=== PATIENT | male | born 1970 | race Caucasian/White ===

== ENCOUNTER 2017-09-19 23:56 | Inpatient (IN) | payer OTHER ==
[2017-09-19 23:57] VITALS: BMI 22.9
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
[2017-09-20] MEDS ORDERED: Sodium Chloride 0.9% 1,000 ML IV ONE (02:39)
[2017-09-20 02:57] LABS: VENOUS BLOOD GAS BASE EXCESS -0.3 mmol/L (0.0-2.0); VENOUS BLOOD GAS PCO2 55 mmHg (40-60); VENOUS BLOOD GAS PO2 31 mm/Hg (30-55)
[2017-09-20 03:07] LABS: BASO % 0.2 % (0.0-2.0); EOS # 0.2 K/uL (0.0-0.7); EOS % 1.6 % (0.0-4.0); HEMOGLOBIN 14.7 g/dL (12.0-18.0); LYMPH # 2.5 K/uL (1.0-4.3); LYMPH % 18.1 % (20.0-40.0); MEAN CELL VOLUME 87.4 fL (80.0-94.0); MEAN CORPUSCULAR HEMOGLOBIN 29.3 pg (27.0-31.0); MEAN CORPUSCULAR HGB CONC 33.5 g/dL (33.0-37.0); MEAN PLATELET VOLUME 8.3 fL (7.2-11.7); MONO # 0.9 K/uL (0.0-0.8); MONO % 6.6 % (0.0-10.0); NEUT # 9.9 K/uL (1.8-7.0); NEUT % 73.5 % (50.0-75.0); RBC 5.01 Mil/uL (4.40-5.90); RED CELL DISTRIBUTION WIDTH 13.1 % (11.5-14.5); WHITE BLOOD COUNT 13.5 K/uL (4.8-10.8)
[2017-09-20 03:10] LABS: URINE BILIRUBIN NEGATIVE (NEGATIVE); URINE CLARITY Clear (Clear); URINE COLOR Yellow (YELLOW); URINE GLUCOSE (UA) NORMAL (Normal); URINE LEUKOCYTE ESTERASE NEG Leu/uL (Negative); URINE NITRATE NEGATIVE (NEGATIVE); URINE PROTEIN NEGATIVE (NEGATIVE); URINE UROBILINOGEN NORMAL mg/dL (0.2-1.0)
[2017-09-20 03:13] LABS: URINE BLOOD NEGATIVE (NEGATIVE)
[2017-09-20 03:20] LABS: ALB/GLOB RATIO 1.1 (1.0-2.1); ALBUMIN 4.2 g/dL (3.5-5.0); ALT/SGPT 32 U/L (21-72); AST/SGOT 21 U/L (17-59); BLOOD UREA NITROGEN 15 mg/dL (9-20); CALCIUM 9.5 mg/dl (8.6-10.4); GFR AFRICAN-AMERICAN > 60; GFR NON-AFRICAN AMERICAN > 60
[2017-09-20] MEDS ORDERED: Morphine 4 MG/ML VIAL ONE (05:20)
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
[2017-09-20 08:06] LABS: BASO % 0.2 % (0.0-2.0); EOS # 0.2 K/uL (0.0-0.7); EOS % 1.9 % (0.0-4.0); HEMOGLOBIN 13.4 g/dL (12.0-18.0); LYMPH % 24.4 % (20.0-40.0); MEAN CORPUSCULAR HEMOGLOBIN 29.6 pg (27.0-31.0); MEAN CORPUSCULAR HGB CONC 33.6 g/dL (33.0-37.0); MEAN PLATELET VOLUME 7.9 fL (7.2-11.7); MONO % 8.3 % (0.0-10.0); NEUT % 65.2 % (50.0-75.0); NRBC % 0.1 % (0.0-2.0); RBC 4.53 Mil/uL (4.40-5.90); RED CELL DISTRIBUTION WIDTH 12.9 % (11.5-14.5); WHITE BLOOD COUNT 12.2 K/uL (4.8-10.8)
[2017-09-20 08:16] LABS: ALB/GLOB RATIO 1.1 (1.0-2.1); ALBUMIN 3.5 g/dL (3.5-5.0); ALT/SGPT 28 U/L (21-72); AST/SGOT 22 U/L (17-59); BLOOD UREA NITROGEN 13 mg/dL (9-20); CALCIUM 8.6 mg/dl (8.6-10.4); GFR AFRICAN-AMERICAN > 60; GFR NON-AFRICAN AMERICAN > 60
--- NOTE | 2017-09-20 08:59 | RAD ---
HISTORY: fever COMPARISON: None available. TECHNIQUE: Chest, one view. FINDINGS: LUNGS: No focal consolidation. Please note that chest x-ray has limited sensitivity for the detection of pulmonary masses. PLEURA: No significant pleural effusion identified. No definite pneumothorax . CARDIOVASCULAR: Heart size appears within normal limits. OSSEOUS STRUCTURES: No acute osseous abnormality identified. VISUALIZED UPPER ABDOMEN: Unremarkable. OTHER FINDINGS: None. IMPRESSION: No focal consolidation, significant pleural effusion, or definite pneumothorax identified.
--- NOTE | 2017-09-21 10:33 | VASCLAB ---
PROCEDURE: Lower Extremity Venous Duplex Exam. HISTORY: r/o DVT B/L LE pain, Fever unknown origin PRIORS: None. TECHNIQUE: Bilateral common femoral, femoral, popliteal and posterior tibial, peroneal and great saphenous veins were evaluated. Flow was assessed with color Doppler, compressibility, assessment of phasic flow and augmentation response. Report prepared by Dean Velez, T FINDINGS: RIGHT: 1. Common Femoral Vein: 1.1. Compressibility - Fully compressible: Thrombus - None : Flow - Phasic: Augmentation -Normal. 2. Femoral Vein: 2.1. Compressibility - Fully compressible: Thrombus - None : Flow - Phasic: Augmentation -Normal. 3. Popliteal Vein: 3.1. Compressibility - Fully compressible: Thrombus - None : Flow - Phasic: Augmentation -Normal. 4. Posterior Tibial Vein: 4.1. Compressibility - Fully compressible: Thrombus - None. 5. Peroneal Vein: 5.1. Compressibility - Fully compressible: Thrombus - None. 6. Great Saphenous Vein: 6.1. Compressibility - Fully compressible: Thrombus - None: Flow - Phasic. LEFT: 1. Common Femoral Vein: 1.1. Compressibility - Fully compressible: Thrombus - None: Flow - Phasic: Augmentation -Normal. 2. Femoral Vein: 2.1. Compressibility - Fully compressible: Thrombus - None: Flow - Phasic: Augmentation -Normal. 3. Popliteal Vein: 3.1. Compressibility - Fully compressible: Thrombus - None : Flow - Phasic: Augmentation -Normal. 4. Posterior Tibial Vein: 4.1. Compressibility - Fully compressible: Thrombus - None. 5. Peroneal Vein: 5.1. Compressibility - Fully compressible: Thrombus - None. 6. Great Saphenous Vein: 6.1. Compressibility - Fully compressible: Thrombus - None: Flow - Phasic. OTHER FINDINGS: Right: None significant. Left: None significant. IMPRESSION: Right: No evidence of deep or superficial vein thrombosis of the right lower extremity. Left: No evidence of deep or superficial vein thrombosis of the left lower extremity.
[2017-09-21 11:58] LABS: BASO % 0.1 % (0.0-2.0); EOS # 0.2 K/uL (0.0-0.7); HEMOGLOBIN 14.2 g/dL (12.0-18.0); LYMPH # 1.8 K/uL (1.0-4.3); LYMPH % 19.4 % (20.0-40.0); MEAN CELL VOLUME 88.1 fL (80.0-94.0); MEAN CORPUSCULAR HEMOGLOBIN 29.7 pg (27.0-31.0); MEAN CORPUSCULAR HGB CONC 33.8 g/dL (33.0-37.0); MEAN PLATELET VOLUME 7.7 fL (7.2-11.7); MONO # 0.8 K/uL (0.0-0.8); NEUT # 6.5 K/uL (1.8-7.0); NEUT % 69.5 % (50.0-75.0); RBC 4.76 Mil/uL (4.40-5.90); RED CELL DISTRIBUTION WIDTH 12.8 % (11.5-14.5); WHITE BLOOD COUNT 9.4 K/uL (4.8-10.8)
--- NOTE | 2017-09-21 12:00 | MRI ---
MRI left knee History: Left knee pain. Comparison: None available. Technique: Multi-echo multiplanar sequences were performed through the left knee without the use of intravenous contrast. Findings: Thinning and attenuation with increased signal seen within the visualized anterior cruciate ligament suggestive for a moderate grade sprain with some partial interstitial tearing/interstitial delamination. Clinical correlation. Posterior cruciate ligament is preserved. Curvilinear increased signal seen within the posterior horn of the medial meniscus suggestive for grade 1 intrasubstance degeneration and or intrasubstance partial tearing. Adjacent moderate grade strain at the posterior meniscocapsular junction of the posterior horn of the medial meniscus. Curvilinear fluid intensity signal seen at the anterior root of the anterior horn of the lateral meniscus extending to the articular surface suggestive for a possible small tear. Mild thickening with increased signal seen within the distal attachment of the medial collateral ligament suggestive for a low-grade sprain. Lateral collateral ligament complex structures appear preserved. Mild distal quadriceps tendinopathy. Patellar tendon is preserved. Patellar cartilage is preserved. Femorotibial articular cartilage is preserved. No significant suprapatellar joint effusion. Increased signal seen at the level of the pes anserinus bursa adjacent to the medial proximal tibia which may represent some insertional tendinopathy. Clinical correlation to site of pain. Adjacent reticulation and edema seen within the anteromedial subcutaneous soft tissues of the proximal tibia. Clinical correlation. Impression: 1. Thinning and attenuation with increased signal seen within the visualized anterior cruciate ligament suggestive for a moderate grade sprain with some partial interstitial tearing/interstitial delamination. Clinical correlation. 2. Curvilinear increased signal seen within the posterior horn of the medial meniscus suggestive for grade 1 intrasubstance degeneration and or intrasubstance partial tearing. Adjacent moderate grade strain at the posterior meniscocapsular junction of the posterior horn of the medial meniscus. 3. Curvilinear fluid intensity signal seen at the anterior root of the anterior horn of the lateral meniscus extending to the articular surface suggestive for a possible small tear. 4. Mild thickening with increased signal seen within the distal attachment of the medial collateral ligament suggestive for a low-grade sprain. 5. Mild distal quadriceps tendinopathy. 6. Increased signal seen at the level of the pes anserinus bursa adjacent to the medial proximal tibia which may represent some insertional tendinopathy. Clinical correlation to site of pain. Adjacent reticulation and edema seen within the anteromedial subcutaneous soft tissues of the proximal tibia. Clinical correlation.
[2017-09-21 12:28] LABS: ALBUMIN 3.9 g/dL (3.5-5.0); ALT/SGPT 25 U/L (21-72); AST/SGOT 44 U/L (17-59); BLOOD UREA NITROGEN 11 mg/dL (9-20); CALCIUM 9.3 mg/dl (8.6-10.4); GFR AFRICAN-AMERICAN > 60; GFR NON-AFRICAN AMERICAN > 60; MAGNESIUM 2.2 mg/dL (1.6-2.3)
[2017-09-21] MEDS ORDERED: Sodium Chloride 0.9% 1,000 ML IV SCH (13:45)
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
[2017-09-21] MEDS ORDERED: Sodium Chloride 0.9% 1,000 ML ONE (14:52)
--- NOTE | 2017-09-21 14:56 | CT ---
PROCEDURE: CT HEAD WITHOUT CONTRAST. HISTORY: headaches COMPARISON: None available. TECHNIQUE: Axial computed tomography images were obtained through the head/brain without intravenous contrast. Radiation dose: Total exam DLP = 877.17 mGy-cm. This CT exam was performed using one or more of the following dose reduction techniques: Automated exposure control, adjustment of the mA and/or kV according to patient size, and/or use of iterative reconstruction technique. FINDINGS: HEMORRHAGE: No intracranial hemorrhage. BRAIN: No mass effect or edema. The gordon-white matter differentiation appears intact. Please note that MRI with diffusion imaging is more sensitive in the detection of acute ischemic event. VENTRICLES: No hydrocephalus. CALVARIUM: Unremarkable. PARANASAL SINUSES: Unremarkable as visualized. No significant inflammatory changes. MASTOID AIR CELLS: Unremarkable as visualized. No inflammatory changes. OTHER FINDINGS: None. IMPRESSION: No acute intracranial pathology identified.
[2017-09-21 16:51] VITALS: RESP 20
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
[2017-09-21 20:06] LABS: LEGIONELLA AG URINE NEGATIVE (NEGATIVE)
[2017-09-21 21:07] LABS: MYCOPLASMA PNEUMONIAE IGM NEGATIVE (NEGATIVE)
[2017-09-21] MEDS: Naproxen 550 mg Tab PO SCH (22:07)
[2017-09-22] MEDS ORDERED: Apap-Butalbital-Caffeine 325-50-40mg Tab PO PRN (07:23)
[2017-09-22 08:22] LABS: BASO % 0.1 % (0.0-2.0); EOS # 0.1 K/uL (0.0-0.7); EOS % 0.4 % (0.0-4.0); HEMOGLOBIN 13.5 g/dL (12.0-18.0); LYMPH # 2.3 K/uL (1.0-4.3); MEAN CELL VOLUME 87.4 fL (80.0-94.0); MEAN CORPUSCULAR HGB CONC 34.3 g/dL (33.0-37.0); MEAN PLATELET VOLUME 7.8 fL (7.2-11.7); MONO # 1.2 K/uL (0.0-0.8); MONO % 5.7 % (0.0-10.0); NEUT # 17.2 K/uL (1.8-7.0); NEUT % 82.8 % (50.0-75.0); RBC 4.5 Mil/uL (4.40-5.90); RED CELL DISTRIBUTION WIDTH 12.5 % (11.5-14.5)
[2017-09-22 08:30] LABS: WHITE BLOOD COUNT 20.8 K/uL (4.8-10.8)
[2017-09-22 08:46] LABS: ALBUMIN 3.7 g/dL (3.5-5.0); ALT/SGPT 30 U/L (21-72); AST/SGOT 27 U/L (17-59); BLOOD UREA NITROGEN 13 mg/dL (9-20); CALCIUM 8.9 mg/dl (8.6-10.4); GFR AFRICAN-AMERICAN > 60; GFR NON-AFRICAN AMERICAN > 60
[2017-09-22] MEDS: Naproxen 550 mg Tab PO SCH ×2 (11:00→18:03)
--- NOTE | 2017-09-22 13:41 | CP.PCM.DIS ---
<SouravHolly desai - Last Filed: 09/22/17 14:23> Provider - Provider Date of Admission: 09/20/17 05:10 Attending physician: Annemarie Woodard DO Time Spent in preparation of Discharge (in minutes): 55 Hospital Course - Lab Results Lab Results: Micro Results 09/20/17 02:00 Blood Blood Culture - Preliminary NO GROWTH AFTER 48 HOURS 09/20/17 02:30 Blood Blood Culture - Preliminary NO GROWTH AFTER 48 HOURS Most Recent Lab Values WBC 20.8 K/uL (4.8-10.8) H D 09/22/17 07:55 RBC 4.50 Mil/uL (4.40-5.90) 09/22/17 07:55 Hgb 13.5 g/dL (12.0-18.0) 09/22/17 07:55 Hct 39.4 % (35.0-51.0) 09/22/17 07:55 MCV 87.4 fL (80.0-94.0) 09/22/17 07:55 MCH 30.0 pg (27.0-31.0) 09/22/17 07:55 MCHC 34.3 g/dL (33.0-37.0) 09/22/17 07:55 RDW 12.5 % (11.5-14.5) 09/22/17 07:55 Plt Count 387 K/uL (130-400) 09/22/17 07:55 MPV 7.8 fL (7.2-11.7) 09/22/17 07:55 Neut % (Auto) 82.8 % (50.0-75.0) H 09/22/17 07:55 Lymph % (Auto) 11.0 % (20.0-40.0) L 09/22/17 07:55 Cole % (Auto) 5.7 % (0.0-10.0) 09/22/17 07:55 Eos % (Auto) 0.4 % (0.0-4.0) 09/22/17 07:55 Baso % (Auto) 0.1 % (0.0-2.0) 09/22/17 07:55 Neut # (Auto) 17.2 K/uL (1.8-7.0) H 09/22/17 07:55 Lymph # (Auto) 2.3 K/uL (1.0-4.3) 09/22/17 07:55 Cole # (Auto) 1.2 K/uL (0.0-0.8) H 09/22/17 07:55 Eos # (Auto) 0.1 K/uL (0.0-0.7) 09/22/17 07:55 Baso # (Auto) 0.0 K/uL (0.0-0.2) 09/22/17 07:55 ESR 32 mm/hr (0-15) H 09/21/17 11:47 PT 11.0 SECONDS (9.7-12.2) 09/20/17 03:04 INR 1.0 09/20/17 03:04 APTT 39 SECONDS (21-34) H 09/20/17 03:04 pO2 31 mm/Hg (30-55) 09/20/17 02:50 VBG pH 7.30 (7.32-7.43) L 09/20/17 02:50 VBG pCO2 55 mmHg (40-60) 09/20/17 02:50 VBG HCO3 23.5 mmol/L 09/20/17 02:50 VBG Total CO2 28.8 mmol/L (22-28) H 09/20/17 02:50 VBG Base Excess -0.3 mmol/L (0.0-2.0) L 09/20/17 02:50 VBG Potassium 3.9 mmol/L (3.6-5.2) 09/20/17 02:50 Sodium 142.0 mmol/l (132-148) 09/20/17 02:50 Chloride 98.0 mmol/L (98-107) 09/20/17 02:50 Glucose 98 mg/dl (75-110) 09/20/17 02:50 Lactate 2.1 mmol/L (0.7-2.1) 09/20/17 02:50 Sodium 138 mmol/L (132-148) 09/22/17 07:55 Potassium 4.0 mmol/L (3.6-5.2) 09/22/17 07:55 Chloride 99 mmol/L (98-107) 09/22/17 07:55 Carbon Dioxide 30 mmol/L (22-30) 09/22/17 07:55 Anion Gap 12 (10-20) 09/22/17 07:55 BUN 13 mg/dL (9-20) 09/22/17 07:55 Creatinine 0.7 mg/dL (0.8-1.5) L 09/22/17 07:55 Est GFR ( Amer) > 60 09/22/17 07:55 Est GFR (Non-Af Amer) > 60 09/22/17 07:55 Random Glucose 96 mg/dL (75-110) 09/22/17 07:55 Lactic Acid 0.8 mmol/L (0.7-2.1) 09/21/17 16:40 Calcium 8.9 mg/dl (8.6-10.4) 09/22/17 07:55 Phosphorus 3.6 mg/dL (2.5-4.5) 09/22/17 07:55 Magnesium 2.0 mg/dL (1.6-2.3) 09/22/17 07:55 Total Bilirubin 0.5 mg/dL (0.2-1.3) 09/22/17 07:55 AST 27 U/L (17-59) 09/22/17 07:55 ALT 30 U/L (21-72) 09/22/17 07:55 Alkaline Phosphatase 62 U/L (38-126) 09/22/17 07:55 Lactate Dehydrogenase 325 U/L (313-618) 09/21/17 14:41 C-React Prot High Sens > 15.00 mg/L (1.00-3.00) H 09/20/17 07:57 Total Protein 7.3 g/dL (6.3-8.3) 09/22/17 07:55 Albumin 3.7 g/dL (3.5-5.0) 09/22/17 07:55 Globulin 3.6 gm/dL (2.2-3.9) 09/22/17 07:55 Albumin/Globulin Ratio 1.0 (1.0-2.1) 09/22/17 07:55 Procalcitonin < 0.05 NG/ML (0.19-0.49) L 09/20/17 07:21 Venous Blood Potassium 3.9 mmol/L (3.6-5.2) 09/20/17 02:50 Urine Color Yellow (YELLOW) 09/20/17 03:05 Urine Clarity Clear (Clear) 09/20/17 03:05 Urine pH 5.0 (5.0-8.0) 09/20/17 03:05 Ur Specific Leland 1.016 (1.003-1.030) 09/20/17 03:05 Urine Protein Negative mg/dL (NEGATIVE) 09/20/17 03:05 Urine Glucose (UA) Normal mg/dL (Normal) 09/20/17 03:05 Urine Ketones Negative mg/dL (NEGATIVE) 09/20/17 03:05 Urine Blood Negative (NEGATIVE) 09/20/17 03:05 Urine Nitrate Negative (NEGATIVE) 09/20/17 03:05 Urine Bilirubin Negative (NEGATIVE) 09/20/17 03:05 Urine Urobilinogen Normal mg/dL (0.2-1.0) 09/20/17 03:05 Ur Leukocyte Esterase Neg Luiza/uL (Negative) 09/20/17 03:05 Urine WBC (Auto) 2 /hpf (0-5) 09/20/17 03:05 Urine RBC (Auto) 1 /hpf (0-3) 09/20/17 03:05 DMITRIY 6 Profile Negative (NEGATIVE) 09/20/17 07:21 Influenza Typ A,B (EIA) Negative for flu a/b (NEGATIVE) 09/21/17 15:41 Ur L.pneumophila Ag Negative (NEGATIVE) 09/21/17 19:39 Mycoplasma pneumon IgM Negative (NEGATIVE) 09/21/17 19:39 Anti-Staphylolysin O Negative (NEGATIVE) 09/21/17 14:41 Grp A Beta Strep Ag Negative (NEGATIVE) 09/21/17 15:41 - Hospital Course Hospital Course: Upon Admission: 47 year old male with no past medical history comes in today complaining of a fever for the past two weeks. The patient states that he tried Ibuprofen at home however, it didnt help with his symptoms. He reports the fever spiking around 9/10 p.m. at night. The Tmax at home was 102F. In conjunction with the fever the patient reports his left leg becomes red every time he spikes a fever. He states that when this occurs he has difficulty moving the knee. The patient had a similar episode approximately four years ago. The patient denies any nausea, vomiting, sick contacts, injury to the leg, cough, changes in vision ,syncopal episodes, abdominal pain, or any other complaints. PMD: Dr. Conroy Past medical history: Denies Allergies: Moxifloxacin Surgical history: Knee reconstruction and Right hand surgery Social history: Denies tobacco use. Social drinker. Denies illicit drug use. Lives with and kids Patient is a full code. Throughout Hospital Course: Patient was admitted for hx of fever x 3 weeks and questionable transient synovitis. 1) Fever * Admit Regular floor * Tylenol 650mg PO Q6H PRN Fever * Blood cultures (09/20/17): no growth for 24 hours X2 * UA: negative; pending urine culture * ESR elevated, CRP: elevated * DMITRIY- negative, Rapid strep - negative, LDH- negative * ASO- pending * White count elevated on admission; has normalized * Supportive therapy * Vitamin C 500mg PO daily * Tylenol 650mg PO Q6H PRN Fever * Legionella, Mycoplasma IgM, Rapid Strep- negative * Patient does not qualify as fever of unknown origin; this has not been going on for 3 weeks * Likely viral illness * Start Naproxen 500mg PO BID * Only received one dose of steroids Patient was completely afebrile during the entire admission. 2) Prior History of Influenza * Previously completed Tamiflu as outpatient * negative here 3) Persistent Headache History of Migraine * Pending Head CT result * Patient reports he had CT head and Brain MRI completed 5 years ago; cannot remember name of neurologist 4) Degenerative Joint Disease, Partial Meniscus Tears; Ligament Sprains * Orthopedic consult (Dr. Gauthier) sales operations specialist * Venous Dopplers: negative for DVT * Sprain, Tendinopathy, and partial Tear as per MRI * Left Knee MRI: Thinning and attenuation with increased signal seen within the visualized anterior cruciate ligament suggestive for a moderate grade sprain with some partial interstitial tearing/interstitial delamination. Clinical correlation. 2. Curvilinear increased signal seen within the posterior horn of the medial meniscus suggestive for grade 1 intrasubstance degeneration and or intrasubstance partial tearing. Adjacent moderate grade strain at the posterior meniscocapsular junction of the posterior horn of the medial meniscus. 3. Curvilinear fluid intensity signal seen at the anterior root of the anterior horn of the lateral meniscus extending to the articular surface suggestive for a possible small tear. 4. Mild thickening with increased signal seen within the distal attachment of the medial collateral ligament suggestive for a low-grade sprain. 5. Mild distal quadriceps tendinopathy. 6. Increased signal seen at the level of the pes anserinus bursa adjacent to the medial proximal tibia which may represent some insertional tendinopathy. Clinical correlation to site of pain. Adjacent reticulation and edema seen within the anteromedial subcutaneous soft tissues of the proximal tibia. Clinical correlation. * Received one dose of steroids * Start Naproxen 500mg PO BID * No orthopedic intervention at this time 5) Ambulatory Dysfunction * Physical therapy to eval and treat * Left Knee MRI: Thinning and attenuation with increased signal seen within the visualized anterior cruciate ligament suggestive for a moderate grade sprain with some partial interstitial tearing/interstitial delamination. Clinical correlation. 2. Curvilinear increased signal seen within the posterior horn of the medial meniscus suggestive for grade 1 intrasubstance degeneration and or intrasubstance partial tearing. Adjacent moderate grade strain at the posterior meniscocapsular junction of the posterior horn of the medial meniscus. 3. Curvilinear fluid intensity signal seen at the anterior root of the anterior horn of the lateral meniscus extending to the articular surface suggestive for a possible small tear. 4. Mild thickening with increased signal seen within the distal attachment of the medial collateral ligament suggestive for a low-grade sprain. 5. Mild distal quadriceps tendinopathy. 6. Increased signal seen at the level of the pes anserinus bursa adjacent to the medial proximal tibia which may represent some insertional tendinopathy. Clinical correlation to site of pain. Adjacent reticulation and edema seen within the anteromedial subcutaneous soft tissues of the proximal tibia. Clinical correlation Please review EMR for full record. Discharge Exam - Head Exam Head Exam: ATRAUMATIC - Additional Findings Additional findings: - Constitutional Appears: No Acute Distress - Head Exam Head Exam: NORMAL INSPECTION, NORMOCEPHALIC - Eye Exam Eye Exam: EOMI, Normal appearance, PERRL Pupil Exam: NORMAL ACCOMODATION - ENT Exam ENT Exam: Mucous Membranes Moist, Normal Exam - Respiratory Exam Respiratory Exam: Clear to Ausculation Bilateral, NORMAL BREATHING PATTERN - GI/Abdominal Exam GI & Abdominal Exam: Soft, Normal Bowel Sounds. absent: Distended, Tenderness - Extremities Exam Extremities Exam: Normal Inspection. absent: Pedal Edema, Tenderness - Neurological Exam Neurological Exam: Alert, Awake, Oriented x3 - Psychiatric Exam Psychiatric exam: Normal Affect, Normal Mood - Skin Skin Exam: Dry, Intact, Normal Color, Warm Discharge Plan - Discharge Medications Prescriptions: RX: Naproxen [Anaprox DS] 550 mg PO BID #14 tab - Follow Up Plan Condition: GOOD Disposition: HOME/ ROUTINE Instructions: Naproxen (By mouth), Fever in Adults (GEN), Swollen Knee Joint ( GEN) Additional Instructions: Please take Naproxen 550mg by mouth twice a day for 7 days. Please follow up with Dr. Garcia or an orthopedic of your choice or recommended by your PMD. Please return to the ED if your symptoms worsen or return. Referrals: [facility] [Outside] Jose Gauthier MD [Staff Provider] - <Annemarie Woodard V - Last Filed: 09/23/17 12:02> Provider - Provider Date of Admission: 09/20/17 05:10 Attending physician: Annemarie Woodard DO Diagnosis - Discharge Diagnosis (1) Fever Status: Acute (2) Ambulatory dysfunction Status: Acute (3) Viral illness Status: Acute (4) Prophylactic measure Status: Acute Hospital Course - Lab Results Lab Results: Micro Results 09/20/17 02:00 Blood Blood Culture - Preliminary NO GROWTH AFTER 48 HOURS 09/20/17 02:30 Blood Blood Culture - Preliminary NO GROWTH AFTER 48 HOURS Most Recent Lab Values WBC 19.0 K/uL (4.8-10.8) H 09/22/17 14:50 RBC 4.46 Mil/uL (4.40-5.90) 09/22/17 14:50 Hgb 13.2 g/dL (12.0-18.0) 09/22/17 14:50 Hct 38.8 % (35.0-51.0) 09/22/17 14:50 MCV 87.1 fL (80.0-94.0) 09/22/17 14:50 MCH 29.7 pg (27.0-31.0) 09/22/17 14:50 MCHC 34.1 g/dL (33.0-37.0) 09/22/17 14:50 RDW 12.7 % (11.5-14.5) 09/22/17 14:50 Plt Count 425 K/uL (130-400) H 09/22/17 14:50 MPV 8.2 fL (7.2-11.7) 09/22/17 14:50 Neut % (Auto) 77.5 % (50.0-75.0) H 09/22/17 14:50 Lymph % (Auto) 16.6 % (20.0-40.0) L 09/22/17 14:50 Cole % (Auto) 5.2 % (0.0-10.0) 09/22/17 14:50 Eos % (Auto) 0.6 % (0.0-4.0) 09/22/17 14:50 Baso % (Auto) 0.1 % (0.0-2.0) 09/22/17 14:50 Neut # (Auto) 14.7 K/uL (1.8-7.0) H 09/22/17 14:50 Lymph # (Auto) 3.2 K/uL (1.0-4.3) 09/22/17 14:50 Cole # (Auto) 1.0 K/uL (0.0-0.8) H 09/22/17 14:50 Eos # (Auto) 0.1 K/uL (0.0-0.7) 09/22/17 14:50 Baso # (Auto) 0.0 K/uL (0.0-0.2) 09/22/17 14:50 ESR 41 mm/hr (0-15) H 09/22/17 14:50 PT 11.0 SECONDS (9.7-12.2) 09/20/17 03:04 INR 1.0 09/20/17 03:04 APTT 39 SECONDS (21-34) H 09/20/17 03:04 pO2 31 mm/Hg (30-55) 09/20/17 02:50 VBG pH 7.30 (7.32-7.43) L 09/20/17 02:50 VBG pCO2 55 mmHg (40-60) 09/20/17 02:50 VBG HCO3 23.5 mmol/L 09/20/17 02:50 VBG Total CO2 28.8 mmol/L (22-28) H 09/20/17 02:50 VBG Base Excess -0.3 mmol/L (0.0-2.0) L 09/20/17 02:50 VBG Potassium 3.9 mmol/L (3.6-5.2) 09/20/17 02:50 Sodium 142.0 mmol/l (132-148) 09/20/17 02:50 Chloride 98.0 mmol/L (98-107) 09/20/17 02:50 Glucose 98 mg/dl (75-110) 09/20/17 02:50 Lactate 2.1 mmol/L (0.7-2.1) 09/20/17 02:50 Sodium 138 mmol/L (132-148) 09/22/17 07:55 Potassium 4.0 mmol/L (3.6-5.2) 09/22/17 07:55 Chloride 99 mmol/L (98-107) 09/22/17 07:55 Carbon Dioxide 30 mmol/L (22-30) 09/22/17 07:55 Anion Gap 12 (10-20) 09/22/17 07:55 BUN 13 mg/dL (9-20) 09/22/17 07:55 Creatinine 0.7 mg/dL (0.8-1.5) L 09/22/17 07:55 Est GFR ( Amer) > 60 09/22/17 07:55 Est GFR (Non-Af Amer) > 60 09/22/17 07:55 Random Glucose 96 mg/dL (75-110) 09/22/17 07:55 Lactic Acid 0.8 mmol/L (0.7-2.1) 09/21/17 16:40 Calcium 8.9 mg/dl (8.6-10.4) 09/22/17 07:55 Phosphorus 3.6 mg/dL (2.5-4.5) 09/22/17 07:55 Magnesium 2.0 mg/dL (1.6-2.3) 09/22/17 07:55 Total Bilirubin 0.5 mg/dL (0.2-1.3) 09/22/17 07:55 AST 27 U/L (17-59) 09/22/17 07:55 ALT 30 U/L (21-72) 09/22/17 07:55 Alkaline Phosphatase 62 U/L (38-126) 09/22/17 07:55 Lactate Dehydrogenase 325 U/L (313-618) 09/21/17 14:41 C-React Prot High Sens > 15.00 mg/L (1.00-3.00) H 09/20/17 07:57 Total Protein 7.3 g/dL (6.3-8.3) 09/22/17 07:55 Albumin 3.7 g/dL (3.5-5.0) 09/22/17 07:55 Globulin 3.6 gm/dL (2.2-3.9) 09/22/17 07:55 Albumin/Globulin Ratio 1.0 (1.0-2.1) 09/22/17 07:55 Procalcitonin < 0.05 NG/ML (0.19-0.49) L 09/20/17 07:21 Venous Blood Potassium 3.9 mmol/L (3.6-5.2) 09/20/17 02:50 Urine Color Yellow (YELLOW) 09/20/17 03:05 Urine Clarity Clear (Clear) 09/20/17 03:05 Urine pH 5.0 (5.0-8.0) 09/20/17 03:05 Ur Specific Leland 1.016 (1.003-1.030) 09/20/17 03:05 Urine Protein Negative mg/dL (NEGATIVE) 09/20/17 03:05 Urine Glucose (UA) Normal mg/dL (Normal) 09/20/17 03:05 Urine Ketones Negative mg/dL (NEGATIVE) 09/20/17 03:05 Urine Blood Negative (NEGATIVE) 09/20/17 03:05 Urine Nitrate Negative (NEGATIVE) 09/20/17 03:05 Urine Bilirubin Negative (NEGATIVE) 09/20/17 03:05 Urine Urobilinogen Normal mg/dL (0.2-1.0) 09/20/17 03:05 Ur Leukocyte Esterase Neg Luiza/uL (Negative) 09/20/17 03:05 Urine WBC (Auto) 2 /hpf (0-5) 09/20/17 03:05 Urine RBC (Auto) 1 /hpf (0-3) 09/20/17 03:05 DMITRIY 6 Profile Negative (NEGATIVE) 09/20/17 07:21 Influenza Typ A,B (EIA) Negative for flu a/b (NEGATIVE) 09/21/17 15:41 Ur L.pneumophila Ag Negative (NEGATIVE) 09/21/17 19:39 Mycoplasma pneumon IgM Negative (NEGATIVE) 09/21/17 19:39 Anti-Staphylolysin O Negative (NEGATIVE) 09/21/17 14:41 Grp A Beta Strep Ag Negative (NEGATIVE) 09/21/17 15:41 Attending/Attestation - Attestation I have personally seen and examined this patient.: Yes I have fully participated in the care of the patient.: Yes I have reviewed all pertinent clinical information, including history, physical exam and plan: Yes Notes (Text): Point of clarification: patient reports he has had Fever since Sep 08; however he has not had cyclic fevers for this time. Patient was previously on antibiotic and then had allergic reaction to Avelox as out patient; when off antibiotic as of Sep 14, the fever came back. This is late computer entry for 09/22/17. Patient seen, examined and case discussed with day-time resident. Patient seen in [facility] 3rd floor. Patient reports he reports he is feeling better. Patient was afebrile last night. Blood cultures remain negative. patient has elevated white count but patient received Prednisone prior to order being discontinued. Patient's serologies were negative. Urine culture is negative. Patient recommended to follow-up with outpatient orthopedic in regards to chronic knee changes. Patient provided work excuse noted for the time while in the hospital. Patient is medically stable for discharge. Patient discharge on naproxen 500mg PO BID for two weeks to cover for inflammations associated with chronic knee changes. Patient is ambulatory. This is a summary of patient's hospitalization. Please see EMR for further details. Discharge Diagnoses: 1) Fever (Resolved) * Admit Regular floor * Tylenol 650mg PO Q6H PRN Fever * Blood cultures (09/20/17): no growth for 3 days X2 * UA: negative; urine culture is negative * ESR elevated, CRP: elevated * negative DMITRIY, ASO * Throat culture: jose growth * LDH is normal * White count normalized; but elevation secondary to steroid * Supportive therapy * Vitamin C 500mg PO daily * Tylenol 650mg PO Q6H PRN Fever * negativte Legionella, Mycoplasma IgM, Rapid Strep * Patient does not qualify as fever of unknown origin; this has not been going on for 3 weeks * Likely viral illness * Start Naproxen 500mg PO BID 2) Prior History of Influenza * Previously completed Tamiflu as outpatient. 3) Headache (resolved) History of Migraine * Head CT (09/21/17): no acute intracranial pathology identified * Patient reports he had CT head and Brain MRI completed 5 years ago; cannot remember name of neurologist * Recommended to follow-up outpatient with his neurologist 4) Transient synovitis; Degenerative Joint Disease, Partial Meniscus Tears; Ligament Sprains * Orthopedic consult (Dr. Gauthier) sales operations specialist * Venous Dopplers: negative for DVT * Sprain, Tendinopathy, and partial Tear as per MRI * Left Knee MRI: Thinning and attenuation with increased signal seen within the visualized anterior cruciate ligament suggestive for a moderate grade sprain with some partial interstitial tearing/interstitial delamination. Clinical correlation. 2. Curvilinear increased signal seen within the posterior horn of the medial meniscus suggestive for grade 1 intrasubstance degeneration and or intrasubstance partial tearing. Adjacent moderate grade strain at the posterior meniscocapsular junction of the posterior horn of the medial meniscus. 3. Curvilinear fluid intensity signal seen at the anterior root of the anterior horn of the lateral meniscus extending to the articular surface suggestive for a possible small tear. 4. Mild thickening with increased signal seen within the distal attachment of the medial collateral ligament suggestive for a low-grade sprain. 5. Mild distal quadriceps tendinopathy. 6. Increased signal seen at the level of the pes anserinus bursa adjacent to the medial proximal tibia which may represent some insertional tendinopathy. Clinical correlation to site of pain. Adjacent reticulation and edema seen within the anteromedial subcutaneous soft tissues of the proximal tibia. Clinical correlation. * Start Naproxen 500mg PO BID (2 weeks worth on discharge) and recommended to follow-up outpatient upon discharge 5) Ambulatory Dysfunction (stable) * Physical therapy to eval and treat * Left Knee MRI: Thinning and attenuation with increased signal seen within the visualized anterior cruciate ligament suggestive for a moderate grade sprain with some partial interstitial tearing/interstitial delamination. Clinical correlation. 2. Curvilinear increased signal seen within the posterior horn of the medial meniscus suggestive for grade 1 intrasubstance degeneration and or intrasubstance partial tearing. Adjacent moderate grade strain at the posterior meniscocapsular junction of the posterior horn of the medial meniscus. 3. Curvilinear fluid intensity signal seen at the anterior root of the anterior horn of the lateral meniscus extending to the articular surface suggestive for a possible small tear. 4. Mild thickening with increased signal seen within the distal attachment of the medial collateral ligament suggestive for a low-grade sprain. 5. Mild distal quadriceps tendinopathy. 6. Increased signal seen at the level of the pes anserinus bursa adjacent to the medial proximal tibia which may represent some insertional tendinopathy. Clinical correlation to site of pain. Adjacent reticulation and edema seen within the anteromedial subcutaneous soft tissues of the proximal tibia. Clinical correlation 6) Prophylactic care * Heparin 5000 units subq 12H * Pepcid 40mg PO daily
[2017-09-22 16:38] LABS: BASO % 0.1 % (0.0-2.0); EOS # 0.1 K/uL (0.0-0.7); EOS % 0.6 % (0.0-4.0); HEMOGLOBIN 13.2 g/dL (12.0-18.0); LYMPH # 3.2 K/uL (1.0-4.3); LYMPH % 16.6 % (20.0-40.0); MEAN CELL VOLUME 87.1 fL (80.0-94.0); MEAN CORPUSCULAR HEMOGLOBIN 29.7 pg (27.0-31.0); MEAN CORPUSCULAR HGB CONC 34.1 g/dL (33.0-37.0); MEAN PLATELET VOLUME 8.2 fL (7.2-11.7); MONO % 5.2 % (0.0-10.0); NEUT # 14.7 K/uL (1.8-7.0); NEUT % 77.5 % (50.0-75.0); RBC 4.46 Mil/uL (4.40-5.90); RED CELL DISTRIBUTION WIDTH 12.7 % (11.5-14.5)
[2017-09-22 16:40] VITALS: BP 111/70; PULSE 64; TEMP 98.1; O2SAT 99
== END 2017-09-22 19:47 | disposition home or self-care (01) | DRG 866 ==
LOC: C.ER 23:56 → C.9E 09-20 05:10 → C.3T 09-21 14:08
PROVIDERS: ADMIT Hospitalist; ATTEND Hospitalist
DX: B34.9 Viral infection, unspecified (principal); R50.81 Fever presenting with conditions classified elsewhere; D72.829 Elevated white blood cell count, unspecified; G43.909 Migraine, unspecified, not intractable, without status migrainosus; K21.9 Gastro-esophageal reflux disease without esophagitis; M19.90 Unspecified osteoarthritis, unspecified site; M67.30 Transient synovitis, unspecified site; T38.0X5A Adverse effect of glucocorticoids and synthetic analogues, initial encounter